=== PATIENT | female | born 1955 | race Caucasian/White ===

== ENCOUNTER 2016-11-18 11:33 | Emergency (ER) | payer MEDICARE, OTHER ==
[~2016-11-18 11:33] MED LIST: ASA5GR PO; ASAB PO; ATIVAN2 MG PO; ATRONASAL6 NAS; BACDS PO; BETAPACE80 PO; C2; CAT2 PO; COUMADIN3 MG PO; COZ50 PO; FERROUS SULF325 M1 PO; GLUCOPHAGE1000 MG PO; HCTZ12.5 PO; HYDROCHLOROT12.5 MG PO; IMDUR120 PO; JANUVIA100 MG PO; KAPIDEX60 MG PO; KLONO2 PO; LAMICTAL10 PO; LEVOTHYROXIN175 MCG PO; LOFIBRA54 MG PO; MAGOX4 PO; NAP500 PO; NIFEDIAC CC60 MG PO; OTC COUGH SYRUP PO; PCET PO; PR25 PO; PRAV10 PO; PRILOSEC40 MG PO; PROAIR HFA PO; SODBICAR10 PO; SPIRO25 PO; SPIRO50 PO; SYNTHROID175 MCG PO; WELLSR150 PO; ZOL100 PO
[2016-11-18 12:57] LABS: BASOPHILS 0.1 %; BASOPHILS ABSOLUTE 0.02 10/3/uL (0.0-0.16); EOSINOPHILS 0.5 %; EOSINOPHILS ABSOLUTE 0.07 10/3/uL (0.0-0.53); HEMATOCRIT 38.8 % (36.0-48.0); HEMOGLOBIN 12.2 g/dL (12.0-16.0); IMMATURE GRANULOCYTES 0.3 %; IMMATURE GRANULOCYTES ABSOLUTE 0.04 10/3/uL (0.0-0.11); LYMPHOCYTES 15.2 %; LYMPHOCYTES ABSOLUTE 2.31 10/3/uL (0.67-4.30); MEAN CORPUS HGB CONC 31.4 g/dL (32.0-36.0); MEAN CORPUSCULAR VOLUME 95.3 fL (80-100); MEAN PLATELET VOLUME 9.7 fL (9.2-13.0); MONOCYTES 9.8 %; MONOCYTES ABSOLUTE 1.48 10/3/uL (0.21-1.20); NEUTROPHILS 74.1 %; NEUTROPHILS ABSOLUTE 11.25 10/3/uL (2.02-8.40); RBC DISTRIBUTION WIDTH 15.1 % (12.0-16.0); RED CELL COUNT 4.07 10/6/uL (4.0-5.6)
[2016-11-18 12:59] LABS: ER CBC TAT 0 Hrs 09 Mins; MANUAL DIFF NO %; PLATELET COUNT 522 10/3/uL (150-400); WHITE BLOOD CELLS 15.2 10/3/uL (4.5-10.5)
[2016-11-18 13:11] LABS: A/G RATIO 0.7 (0.7-1.9); ALBUMIN 3.7 G/DL (3.5-5.0); ALKALINE PHOSPHATASE 83 U/L (45-117); BUN (BLOOD UREA NITROGEN) 30 MG/DL (6-23); CALCIUM, SERUM 9.5 MG/DL (8.5-10.4); CHLORIDE, SERUM 107 MMOL/L (96-112); CO2 (CARBON DIOXIDE) 22 MMOL/L (24-34); CREATININE 1.33 MG/DL (0.55-1.02); GFR AFRICAN AMERICAN 49 ML/MIN (>=60); GFR NON AFRICAN AMERICAN 42 ML/MIN (>=60); GLOBULIN 5.4 G/DL (2.5-4.1); GLUCOSE, SERUM 146 MG/DL (60-99); POTASSIUM, SERUM 4.2 MMOL/L (3.5-5.3); SGOT(AST) 19 U/L (5-40); SGPT(ALT) 21 U/L (5-65); SODIUM, SERUM 140 MMOL/L (135-148); TOTAL BILIRUBIN 0.5 MG/DL (0-1.2); TOTAL PROTEIN 9.1 G/DL (6.0-8.5)
[2016-11-18 14:11] LABS: WBC (NOT ORDERED) (RFLEX) 0 (0-5)
[2016-11-18 14:20] LABS: ASCORBIC ACID (UR NOT ORDER) NEG (NEG); BILIRUBIN, URINE NEGATIVE (NEG); ER URINALYSIS TAT 0 Hrs 13 Mins; KETONE, URINE NEGATIVE (NEG); LEUKOCYTE ESTERASE(NOT OR NEG (NEG); NITRITE (URINE) NEG (NEG)
== END 2016-11-18 16:32 | disposition home or self-care (01) ==
LOC: ER 11:33
PROVIDERS: Emergency Medicine
DX: R30.0 Dysuria (principal); I10 Essential (primary) hypertension; I48.91 Unspecified atrial fibrillation; F31.9 Bipolar disorder, unspecified; E11.9 Type 2 diabetes mellitus without complications; Z88.0 Allergy status to penicillin; Z88.8 Allergy status to other drugs, medicaments and biological substances; Z79.899 Other long term (current) drug therapy
CPT/HCPCS: 80053; 81001; 83690; 85025; 99283